=== PATIENT | female | born 1980 | race Caucasian/White ===

== ENCOUNTER 2016-10-04 00:33 | Emergency (ER) | payer BC ==
[2016-10-04 01:42] LABS: RED BLOOD COUNT 4.91 M/UL (4.00-5.10); WHITE BLOOD COUNT 14.4 K/UL (4.5-11.0)
[2016-10-04 01:50] LABS: BUN/CREATININE RATIO 27 (0-10)
== END 2016-10-04 05:16 | disposition home or self-care (01) ==
LOC: ER1 00:33
PROVIDERS: Family Medicine
DX: K52.9 Noninfective gastroenteritis and colitis, unspecified (principal); E11.9 Type 2 diabetes mellitus without complications; Z90.49 Acquired absence of other specified parts of digestive tract; Z79.84 Long term (current) use of oral hypoglycemic drugs; Z79.899 Other long term (current) drug therapy
CPT/HCPCS: 36415; 80053; 81001; 82150; 83690; 84703; 85025; 87045; 87046; 89055; 96361; 96374; 96375; 96376; 99284; C9113; J2270; J2405; J7050; J7120; Q9962

== ENCOUNTER 2016-12-07 07:48 | Emergency (ER) | payer BC ==
[2016-12-07 09:05] LABS: HEMOGLOBIN 12.1 gm/dl (12.3-15.3); RED BLOOD COUNT 5.46 M/UL (4.00-5.10); WHITE BLOOD COUNT 8.9 K/UL (4.5-11.0)
[2016-12-07 09:22] LABS: BUN/CREATININE RATIO 20 (0-10)
== END 2016-12-07 10:55 | disposition home or self-care (01) ==
LOC: ER1 07:48
PROVIDERS: Physician Assistant
DX: R10.84 Generalized abdominal pain (principal); R11.0 Nausea; E11.9 Type 2 diabetes mellitus without complications; F41.9 Anxiety disorder, unspecified; Z79.84 Long term (current) use of oral hypoglycemic drugs; Z90.49 Acquired absence of other specified parts of digestive tract
CPT/HCPCS: 36415; 80053; 81001; 82150; 83605; 83690; 84703; 85025; 96374; 99284; C9113; J2405

== ENCOUNTER 2021-08-12 17:17 | Emergency (ER) | payer BC ==
[~2021-08-12 17:17] MED LIST: ABILIFY 2 MG TAB2 MG PO; BUSPIRONE HCL10 MG PO; CLEOCIN HCL300 MG PO; COLACE 100MG C100 MG PO; DIABETA 5 MG TAB5 MG PO; GLUCOPHAGE1000 MG PO; LEVAQUIN500 MG PO; LEVAQUIN750 MG PO; METFORMIN HCL1000 M1 PO; NOVOLIN 70100 UNIT/1 SQ; SERTRALINE HCL100 MG PO; SULFAMETHOXAZO1 EACH PO; TRANDATE 100 M100 MG PO; ZOLOFT100 MG PO; ZOLOFT50 MG PO
[2021-08-12 18:58] LABS: HEMOGLOBIN 13.9 gm/dl (12.3-15.3); RED BLOOD COUNT 4.93 M/UL (4.00-5.10); WHITE BLOOD COUNT 8.7 K/UL (4.5-11.0)
[2021-08-12 19:35] LABS: BUN/CREATININE RATIO 16 (0-10)
== END 2021-08-12 20:30 | disposition home or self-care (01) ==
LOC: ER1 17:17
PROVIDERS: Physician Assistant Medical
DX: U07.1 COVID-19 (principal); E11.65 Type 2 diabetes mellitus with hyperglycemia; Z90.49 Acquired absence of other specified parts of digestive tract
CPT/HCPCS: 71045; 80053; 85025; 99285